=== PATIENT | male | born 1940 | race Caucasian/White ===

== ENCOUNTER 2021-09-11 20:23 | Emergency (ER) | payer MEDICARE, OTHER ==
[~2021-09-11] VITALS: Ht 167.6 cm; Wt 56.7 kg
[2021-09-11] MEDS ORDERED: ONDANSETRON 4 MG/2 ML VIAL IV ONE (20:30)
--- NOTE | 2021-09-11 20:31 | NUR ---
pt bib ra and placed in room 4b.
[2021-09-11] MEDS ORDERED: ONDANSETRON 4 MG/2 ML VIAL ONE (20:36)
[2021-09-11 20:53] LABS: HEMATOCRIT 36.8 % (36.7-47.1); MEAN CORPUSCULAR HEMOGLOBIN 33.4 uug (23.8-33.4); MEAN CORPUSCULAR VOLUME 97.7 fL (73.0-96.2); PLATELET COUNT (AUTO) 92 K/uL (152-348)
[2021-09-11 21:08] LABS: ETHANOL < 3 MG/DL (0-0)
[2021-09-11 21:15] LABS: CARBON DIOXIDE 24 mmol/L (21-32); CHLORIDE 105 mmol/L (98-107); CREATININE 1.4 mg/dL (0.6-1.3); GLUCOSE 228 mg/dL (74-106); POTASSIUM 4.2 mmol/L (3.5-5.1); UREA NITROGEN, BLOOD 17 mg/dL (7-18)
[2021-09-11] MEDS ORDERED: PROP10TA10 PO (21:17)
[2021-09-11] MEDS ORDERED: MV-M1TAB18 PO (21:17)
[2021-09-11] MEDS ORDERED: TAMS-3 PO (21:17)
[2021-09-11] MEDS ORDERED: RIFA550T PO (21:17)
[2021-09-11] MEDS ORDERED: SITA100T PO (21:17)
[2021-09-11] MEDS ORDERED: OXYB5TAB16 PO (21:17)
[2021-09-11] MEDS ORDERED: METF-494 PO (21:17)
[2021-09-11] MEDS ORDERED: FURO40TA5 PO (21:17)
[2021-09-11] MEDS ORDERED: SPIR100T5 PO (21:17)
[2021-09-11] MEDS ORDERED: ACET-2154 PO (21:17)
[2021-09-11] MEDS ORDERED: ATOR20TA PO (21:17)
[2021-09-11] MEDS ORDERED: FERR325T30 PO (21:17)
[2021-09-11] MEDS ORDERED: PANT40TA49 PO (21:17)
[2021-09-11] MEDS ORDERED: LACT10SO3 PO (21:17)
[2021-09-11] MEDS ORDERED: MEMA10TA PO (21:17)
[2021-09-11 21:19] LABS: ALANINE AMINOTRANSFERASE 17 U/L (16-63); ALKALINE PHOSPHATASE 149 U/L (50-136); ASPARTATE AMINOTRANSFERASE 22 U/L (15-37); BILIRUBIN,DIRECT 0.4 mg/dL (0.0-0.2); BILIRUBIN,TOTAL 1.3 mg/dL (0.2-1.0); TOTAL PROTEIN, SERUM 8.5 g/dL (6.4-8.2)
[2021-09-11 21:20] LABS: ACETAMINOPHEN < 2.0 ug/mL (10-30)
[2021-09-11 21:27] LABS: *BILIRUBIN,URIN NEGATIVE (NEGATIVE); *BLOOD, URINE 1+ (NEGATIVE); *CLARITY,URINE CLOUDY (CLEAR); *COLOR,URINE YELLOW (YELLOW); *KETONES,URINE NEGATIVE (NEGATIVE); *UROBILINOGEN,URINE 0.2 E.U./dl (NORMAL); LEUKOCYTE ESTERASE ,URINE 2+ (NEGATIVE); NITRITE, URINE POSITIVE (NEGATIVE); PH,URINE 5.5 (5.0-8.0); UGLUCOSE NEGATIVE (NEGATIVE)
[2021-09-11 21:36] LABS: BACTERIA,URINE MANY /HPF (NONE SEEN); RBC,URINE 20-50 /HPF (0-3); SQUAMOUS EPITHELIAL CELL,UR FEW /HPF (NONE SEEN); WBC,URINE TNTC /HPF (0-3)
[2021-09-11 21:41] LABS: *AMPHETAMINE, URINE NEGATIVE (NEGATIVE); *CANNABINOID, URINE NEGATIVE (NEGATIVE); *COCCAINE, URINE NEGATIVE (NEGATIVE); *OPIATE, URINE NEGATIVE (NEGATIVE); *PHENCYCLIDINE SCREEN,URINE NEGATIVE (NEGATIVE)
--- NOTE | 2021-09-11 21:46 | NUR ---
Dr. Askew in speaking with the pt and famiy.
--- NOTE | 2021-09-11 21:47 | NUR ---
pt went for cat scan of head.
[2021-09-11] MEDS ORDERED: LACTULOSE 20 G/30 ML LIQUID UDC PO ONE (22:00)
[2021-09-11] MEDS ORDERED: LACTULOSE 20 G/30 ML LIQUID UDC ONE (22:00)
--- NOTE | 2021-09-11 22:31 | NUR ---
per Dr. Askew he spoke with Dr. Holley and states the pt has bilateral subdural hematoma.
--- NOTE | 2021-09-11 22:36 | NUR ---
Per Dr. Askew he received a call back from Dr. Holley and the pt will go to [facility].
--- NOTE | 2021-09-11 22:52 | NUR ---
spoke with Gala at the transfer center as the pt will be transferred to [facility]. She requested I fax the face sheet and covid results.
--- NOTE | 2021-09-11 23:23 | NUR ---
contact information is Fei at [phone] and [phone]. son in law and daughter.
--- NOTE | 2021-09-12 00:14 | NUR ---
spoke with Adriana at [facility] at [phone] states the pt will go to room 4411 and number for report is [phone] at [facility].
--- NOTE | 2021-09-12 01:07 | NUR ---
report given to Joan WOOTEN at [facility] to go to room 4411 number that was called was [phone]. I told her I do not have a transport time as of yet but I will call her when I am notified.
[2021-09-12] MEDS ORDERED: CEFTRIAXONE /D5W 50ML IVPB **ER PYXIS IV ONE (01:09)
[2021-09-12] MEDS ORDERED: CEFTRIAXONE 1 G in IV DEXTROSE 5% 50 ML IV ONE (01:15)
--- NOTE | 2021-09-12 01:22 | NUR ---
spoke with Gala at the transfer center she states they are still unaware of when transport will arrive they do not have a time currently.
--- NOTE | 2021-09-12 02:01 | NUR ---
Twila blanca in [facility] - 09/12/21 at 0203 by [facility] pt was transported via w/c to room 329 henrry Leal in room to receive the pt.
--- NOTE | 2021-09-12 03:34 | NUR ---
call to [facility] at [phone]. Was told by Gala that they are still waiting to find out about transfer.
--- NOTE | 2021-09-12 06:15 | NUR ---
Spoke with Hector, rn case management for [facility], with [facility] for [facility] in 1 hour ~ [id number].
--- NOTE | 2021-09-12 07:06 | NUR ---
report was given to Josh WOOTEN with [facility] transport pt to go to [facility] room 4411. I called [facility] at [phone] and spoke with Tiffany the satellite installation technician to inform them that the pt will now be leaving with [facility] transport.
== END 2021-09-12 07:18 | disposition short-term general hospital (02) ==
LOC: ER 20:23
DX: E72.20 Disorder of urea cycle metabolism, unspecified (principal); R41.0 Disorientation, unspecified; I62.01 Nontraumatic acute subdural hemorrhage; N39.0 Urinary tract infection, site not specified; K76.9 Liver disease, unspecified; Z74.01 Bed confinement status; F03.90 Unspecified dementia, unspecified severity, without behavioral disturbance, psychotic disturbance, mood disturbance, and anxiety; Z20.822 Contact with and (suspected) exposure to COVID-19; I50.9 Heart failure, unspecified; E11.9 Type 2 diabetes mellitus without complications; N40.0 Benign prostatic hyperplasia without lower urinary tract symptoms; K21.9 Gastro-esophageal reflux disease without esophagitis; Z79.899 Other long term (current) drug therapy; Z79.84 Long term (current) use of oral hypoglycemic drugs
CPT/HCPCS: 80076; 80048; 81001; 82140; 84443; 85025; 85730; 87426; 87040 ×2; 87086; 84484 ×2; 36415; 93005; 71045; 70450; 99291; 96375; 83605 ×2; 80299; 80320; 80307; 96365; J2405; J0696; A4663; G0480

== ENCOUNTER 2021-10-26 19:35 | Inpatient (IN) | payer MEDICARE, OTHER ==
[~2021-10-26] VITALS: Ht 172.7 cm; Wt 59.4 kg
[~2021-10-26 19:35] MED LIST: ACET-2154 PO; ATOR20TA PO; FERR325T30 PO; FURO40TA5 PO; LACT10SO3 PO; MEMA10TA PO; METF-494 PO; MV-M1TAB18 PO; OXYB5TAB16 PO; PANT40TA49 PO; PROP10TA10 PO; RIFA550T PO; SITA100T PO; SPIR100T5 PO; TAMS-3 PO
[2021-10-26] MEDS ORDERED: PROPOFOL 100 ML ONE (19:59)
[2021-10-26] MEDS ORDERED: PROPOFOL 100 ML IV ONE (20:00)
[2021-10-26] MEDS ORDERED: SUCCINYLCHOLINE CHLORIDE 200 MG/10 ML VIAL IV ONE (20:00)
[2021-10-26] MEDS ORDERED: ETOMIDATE 20 MG/10 ML VIAL IV ONE (20:00)
[2021-10-26] MEDS ORDERED: IV NORMAL SALINE 1000 ML BAG IV ONE ×2 (20:00→21:30)
--- NOTE | 2021-10-26 20:05 | NUR ---
Dr Reddy at bedside, MSE in progress
--- NOTE | 2021-10-26 20:08 | NUR ---
Plan for intubation. RT notified
[2021-10-26 20:17] LABS: HEMATOCRIT 38.1 % (36.7-47.1); MEAN CORPUSCULAR VOLUME 105.8 fL (73.0-96.2); PLATELET COUNT (AUTO) 107 K/uL (152-348)
[2021-10-26 20:28] LABS: CARBON DIOXIDE 21 mmol/L (21-32); CHLORIDE 104 mmol/L (98-107); CREATININE 1.5 mg/dL (0.6-1.3); GLUCOSE 169 mg/dL (74-106); POTASSIUM 4.8 mmol/L (3.5-5.1); UREA NITROGEN, BLOOD 19 mg/dL (7-18)
[2021-10-26 20:30] VITALS: BP 146/73
--- NOTE | 2021-10-26 20:30 | NUR ---
Pt received report from SUGAR Solis,pt is intubated and sedated on propofol. Tube size 7.5 with 24cm lip line.VENT on rate 16, Tv 450, peep 5, FIO2 100%, O2 sat within desired limits. Cardiac rasheed, NSR, SBP within normal limits. NG -T inserted and clamped. . Loya Catheter 16 inserted and is on gravity with adequate output.
[2021-10-26 20:42] LABS: ALANINE AMINOTRANSFERASE 16 U/L (16-63); ALKALINE PHOSPHATASE 119 U/L (50-136); ASPARTATE AMINOTRANSFERASE 29 U/L (15-37); BILIRUBIN,TOTAL 2.9 mg/dL (0.2-1.0); TOTAL PROTEIN, SERUM 8.6 g/dL (6.4-8.2)
--- NOTE | 2021-10-26 20:57 | NUR ---
Dr Goodman at bedside, MSE in progress
[2021-10-26 21:00] VITALS: BP 135/76
--- NOTE | 2021-10-26 21:00 | NUR ---
Patient's family at bedside
[2021-10-26 21:30] VITALS: BP 111/61
[2021-10-26] MEDS ORDERED: hydrALAZINE HCL 20 MG/1 ML VIAL IV PRN (21:30)
[2021-10-26] MEDS ORDERED: ALBUTEROL SULFATE 8 GM HFA.AER.AD IH PRN (21:30)
[2021-10-26] MEDS ORDERED: MORPHINE SULFATE 2 MG/1 ML DISP.SYRIN IV PRN (21:30)
[2021-10-26] MEDS ORDERED: VANCOMYCIN IV 1,000 MG in IV DEXTROSE 5% 250 ML IV ONE (21:30)
[2021-10-26] MEDS: LACTULOSE 20 G/30 ML LIQUID UDC PO SCH (21:30)
[2021-10-26] MEDS ORDERED: PIPERACILLIN SODIUM/TAZOBACTAM 3.375 G in IV DEXTROSE 5% 50 ML IV ONE (21:30)
[2021-10-26] MEDS ORDERED: ONDANSETRON 4 MG/2 ML VIAL IV PRN (21:30)
[2021-10-26] MEDS ORDERED: LACTULOSE 20 G/30 ML LIQUID UDC NG ONE (21:30)
--- NOTE | 2021-10-26 21:30 | NUR ---
Patient has been accepted by Dr Goodman
--- NOTE | 2021-10-26 21:31 | NUR ---
PATIENT ADMITTED ICU IN THE ER
--- NOTE | 2021-10-26 21:32 | NUR ---
Hali WHITING CAN WORKER at bedside
[2021-10-26] MEDS ORDERED: DEXTROSE 50% 50 ML DISP.SYRIN IV PRN (21:45)
[2021-10-26] MEDS ORDERED: FUROSEMIDE 40 MG/4 ML VIAL IV ONE (21:45)
[2021-10-26] MEDS ORDERED: FUROSEMIDE 40 MG/4 ML VIAL IV SCH (21:45)
[2021-10-26] MEDS ORDERED: PIPERACILLIN/TAZOBACTAM/D5W 50 ML IV ONE (21:52)
[2021-10-26] MEDS ORDERED: LACTULOSE 20 G/30 ML LIQUID UDC ONE (21:56)
[2021-10-26 22:00] VITALS: BP 91/52
[2021-10-26] MEDS ORDERED: VANCOMYCIN IV 200 ML ONE (22:59)
[2021-10-26 23:00] VITALS: BP 84/51
[2021-10-26] MEDS ORDERED: SIMETHICONE 80 MG TAB.CHEW ONE (23:02)
[2021-10-26] MEDS ORDERED: ATORVASTATIN 20 MG TABLET ONE (23:02)
--- NOTE | 2021-10-26 23:32 | NUR ---
called outside pharmacy,spoke to Kassy, verified 2 lactulose orders from 2 different DRs. one is now and one is QID.Advised to give the stat one and go to the routine time on the other meds
[2021-10-26] MEDS ORDERED: FUROSEMIDE 40 MG/4 ML VIAL ONE (23:36)
[2021-10-26] MEDS ORDERED: RIFAXIMIN 550 MG TABLET ONE (23:36)
[2021-10-26] MEDS: RIFAXIMIN 550 MG TABLET PO SCH (23:43)
[2021-10-27] VITALS (59 sets, daily range): BP systolic 75–138; BP diastolic 45–77
[2021-10-27] LABS: *BILIRUBIN,URIN NEGATIVE (NEGATIVE); *CLARITY,URINE CLEAR (CLEAR); *COLOR,URINE YELLOW (YELLOW); *KETONES,URINE TRACE (NEGATIVE); *UROBILINOGEN,URINE 0.2 E.U./dl (NORMAL); LEUKOCYTE ESTERASE ,URINE 2+ (NEGATIVE); NITRITE, URINE NEGATIVE (NEGATIVE); PH,URINE 5.5 (5.0-8.0); UGLUCOSE NEGATIVE (NEGATIVE)
[2021-10-27 00:06] LABS: *BLOOD, URINE TRACE (NEGATIVE)
[2021-10-27 00:25] LABS: BACTERIA,URINE MANY /HPF (NONE SEEN); SQUAMOUS EPITHELIAL CELL,UR FEW /HPF (NONE SEEN)
--- NOTE | 2021-10-27 01:20 | NUR ---
Pt with RT, RN and X-RAY tech went for CT scan.
--- NOTE | 2021-10-27 01:50 | NUR ---
Pt back from CT scan.
[2021-10-27] MEDS ORDERED: PROPOFOL 100 ML ONE ×2 (01:57→16:03)
[2021-10-27] MEDS ORDERED: PROPOFOL 100 ML IV ONE (02:15)
[2021-10-27 05:28] LABS: HEMATOCRIT 32.2 % (36.7-47.1); MEAN CORPUSCULAR HEMOGLOBIN 36.5 uug (23.8-33.4); MEAN CORPUSCULAR VOLUME 104.8 fL (73.0-96.2); PLATELET COUNT (AUTO) 91 K/uL (152-348)
[2021-10-27 05:53] LABS: ALANINE AMINOTRANSFERASE 17 U/L (16-63); ALKALINE PHOSPHATASE 92 U/L (50-136); ASPARTATE AMINOTRANSFERASE 22 U/L (15-37); BILIRUBIN,TOTAL 2.7 mg/dL (0.2-1.0); CARBON DIOXIDE 19 mmol/L (21-32); CHLORIDE 107 mmol/L (98-107); CREATININE 1.5 mg/dL (0.6-1.3); GLUCOSE 170 mg/dL (74-106); PHOSPHOROUS 3.7 mg/dL (2.5-4.9); POTASSIUM 3.7 mmol/L (3.5-5.1); TOTAL PROTEIN, SERUM 7.3 g/dL (6.4-8.2); UREA NITROGEN, BLOOD 22 mg/dL (7-18)
[2021-10-27] MEDS: BLOOD SUGAR DIAGNOSTIC 1 EACH STRIP VI SCH ×4 (06:35→20:51)
[2021-10-27] MEDS ORDERED: ALBUTEROL SULFATE 2.5 MG/3 ML NEBU NEB PRN (07:15)
--- NOTE | 2021-10-27 07:29 | NUR ---
Pt received intubated on CMV, 7.5 ETT secured with anchorfast @ 23cm lip line. Fio2 titrated to 90%. RN notified. Spo2 and respirations wnl. ETT repositioned. ETT/oral sxn.
--- NOTE | 2021-10-27 08:55 | NUR ---
doctor donell informed as new consult
[2021-10-27] MEDS ORDERED: FUROSEMIDE 20 MG TABLET PO SCH (09:00)
[2021-10-27] MEDS ORDERED: IV NS 1000 ML 1,000 ML IV ONE ×2 (09:00→09:45)
[2021-10-27] MEDS ORDERED: SPIRONOLACTONE 50 MG TABLET PO SCH (09:00)
[2021-10-27] MEDS ORDERED: MEMANTINE HCL 10 MG TABLET PO SCH (09:00)
[2021-10-27] MEDS ORDERED: PANTOPRAZOLE SODIUM 40 MG TABLET.DR PO SCH (09:00)
[2021-10-27] MEDS ORDERED: SPIRONOLACTONE 100 MG TABLET PO SCH (09:00)
[2021-10-27] MEDS: FLUTICASONE/VILANTEROL 1 EACH BLST.W.DEV INH SCH (09:00)
[2021-10-27] MEDS: PROPRANOLOL HCL 10 MG TABLET PO SCH ×2 (09:00→16:17)
[2021-10-27] MEDS ORDERED: PIPERACILLIN SODIUM/TAZOBACTAM 3.375 G in IV DEXTROSE 5% 50 ML IV SCH (09:00)
[2021-10-27] MEDS ORDERED: ATORVASTATIN 20 MG TABLET PO SCH (09:00)
[2021-10-27] MEDS: PIPERACILLIN SODIUM/TAZOBACTAM 3.375 G in IV DEXTROSE 5% 100 ML IV SCH ×3 (09:29→23:24)
[2021-10-27] MEDS ORDERED: RIFAXIMIN 550 MG TABLET ONE ×2 (09:34→20:27)
[2021-10-27] MEDS ORDERED: LACTULOSE 20 G/30 ML LIQUID UDC ONE ×4 (09:34→20:27)
[2021-10-27] MEDS: LACTULOSE 20 G/30 ML LIQUID UDC PO SCH ×4 (09:35→20:30)
[2021-10-27] MEDS ORDERED: HEPARIN SODIUM,PORCINE 5,000 UNITS/ML VIAL ONE (09:35)
[2021-10-27] MEDS ORDERED: TAMSULOSIN HCL 0.4 MG CAP.SR.24H ONE (09:35)
[2021-10-27] MEDS: RIFAXIMIN 550 MG TABLET PO SCH ×2 (09:37→20:30)
[2021-10-27] MEDS: TAMSULOSIN HCL 0.4 MG CAP.SR.24H PO SCH (09:37)
[2021-10-27] MEDS: HEPARIN SODIUM,PORCINE 5,000 UNITS/ML VIAL SQ SCH ×2 (09:40→20:12)
[2021-10-27] MEDS ORDERED: ATORVASTATIN 20 MG TABLET ONE ×2 (10:00→20:28)
[2021-10-27] MEDS ORDERED: PANTOPRAZOLE ORAL SUSPENSION 40 MG SUSPDR.PKT NG SCH (10:30)
--- NOTE | 2021-10-27 10:59 | NUR ---
US guided thoracentesis will be done tomorrow. hold blood thinners for prior to procedure
[2021-10-27] MEDS: INSULIN REGULAR, HUMAN 300 UNIT/3 ML VIAL SQ PRN ×3 (12:13→21:02)
[2021-10-27] MEDS ORDERED: ALBUMIN HUMAN 25% 250 ML IV ONE (12:30)
[2021-10-27] MEDS ORDERED: ALBUMIN HUMAN 25% 50 ML ONE (12:33)
[2021-10-27] MEDS ORDERED: ALBUMIN HUMAN 25% 200 ML ONE (12:34)
[2021-10-27] MEDS ORDERED: LEVE500T20 PO (13:07)
[2021-10-27] MEDS ORDERED: OXYB-58 PO (13:07)
[2021-10-27] MEDS ORDERED: PANTOPRAZOLE ORAL SUSPENSION 40 MG SUSPDR.PKT PO SCH (13:11)
[2021-10-27] MEDS ORDERED: NOREPINEPHRINE BITARTRATE 8 MG in IV NORMAL SALINE 242 ML IV PRN (14:15)
[2021-10-27] MEDS: PROPOFOL 100 ML IV PRN (16:13)
--- NOTE | 2021-10-27 16:46 | NUR ---
Pt is stable on vent, Fio2 titrated to 40% during shift. Spo2 and respirations wnl. ETT repositioned Q2, ett/oral sxn prn. No resp. distress noted throughout shift. Will continue to monitor and follow current respiratory treatments as ordered.
[2021-10-27 18:16] LABS: ABG PCO2 22.9 mmHg (35.0-45.0); ABG PH 7.462 (7.350-7.450); ABG PO2 108.3 mmHg (75.0-100.0); ABG SITE LEFT RADIAL; ABG TOTAL HEMOGLOBIN 12.2 G/dL (13.5-18.0); MetHb 0.2 % (0.0-1.5); O2Hb 97.8 % (94.0-97.0); VENT MODE VENT - A/C; VT, ABG 450 mL
[2021-10-27 18:28] LABS: ABG BASE EXCESS -5.2 mmol/L; ABG HCO3 16.4 mmol/L; ABG PCO2 21.8 mmHg (35.0-45.0); ABG PH 7.495 (7.350-7.450); ABG PO2 170.1 mmHg (75.0-100.0); ABG SITE LEFT RADIAL; ABG TOTAL HEMOGLOBIN 11.2 G/dL (13.5-18.0); COHb 0.3 % (0.5-1.5); MetHb 0.2 % (0.0-1.5); O2Hb 98.5 % (94.0-97.0); VENT MODE VENT - A/C; VT, ABG 45 mL
--- NOTE | 2021-10-27 19:30 | NUR ---
Received pt sedated and intubated, on VENT rate 16, Tv 450, FIO2 40%, peep 5. O2 sat within desired limits. Cardiac rasheed, NSR, SBP within desired limits. Loya catheter is on gravity.NGT clamped . 3 lumen Central line on right internal jugular,intact and patent. Will continue to monitor.
[2021-10-27] MEDS ORDERED: OXYBUTYNIN XL 5 MG TABSR PO ONE (20:27)
[2021-10-27] MEDS: ATORVASTATIN 20 MG TABLET PO SCH (20:30)
[2021-10-27] MEDS: OXYBUTYNIN XL 5 MG TABSR PO SCH (20:30)
[2021-10-27] MEDS: MEMANTINE HCL 10 MG TABLET PO SCH (20:30)
[2021-10-27] MEDS ORDERED: INSULIN REGULAR, HUMAN 300 UNIT/3 ML VIAL ONE (20:55)
[2021-10-27] MEDS ORDERED: OXYBUTYNIN CHLORIDE 5 MG TABLET PO SCH (21:00)
[2021-10-28] VITALS (57 sets, daily range): BP systolic 86–144; BP diastolic 49–71
--- NOTE | 2021-10-28 01:55 | NUR ---
Pt has no change from previous assessment.Had 2 moderate loose stools. V/S within desired limits. Lactic Acid labs have been drawn Q4h, Levels continue to decrease .Continuing to monitor.
--- NOTE | 2021-10-28 02:54 | NUR ---
PATIENT ON CONT GAMEZ VENT WITH 7.5 ET/TUBE IN PLACE AND SECURED WITH ANCHOR FAST, MOVE POSITION Q2 HOURS, PT DOES ASSIST AT TIMES, PT IS SEDATED ON DIPRIVAN, SUCTION SOME BLOODY TINGE SECRETIONS, IN ORAL CAVITY WITH GEGE, CHANGE HME, ALL VENT ALARMS GOOD, CURRENT VENT SETTINGS, A/C 16, 450ML, PEEP5 , FIO2 @ 40%, NO VENT CHANGES MADE, VENT PLUGGED INTO RED WALL OUTLET .Cristela LEOP Addendum: 10/28/21 at 0256 by CONY GARZON RT Amended: Links added.
[2021-10-28 04:51] LABS: HEMATOCRIT 30.8 % (36.7-47.1); MEAN CORPUSCULAR HEMOGLOBIN 36.1 uug (23.8-33.4); PLATELET COUNT (AUTO) 82 K/uL (152-348)
[2021-10-28 05:01] LABS: CARBON DIOXIDE 19 mmol/L (21-32); CHLORIDE 107 mmol/L (98-107); CREATININE 1.5 mg/dL (0.6-1.3); GLUCOSE 161 mg/dL (74-106); MAGNESIUM 1.3 mg/dL (1.8-2.4); POTASSIUM 3.4 mmol/L (3.5-5.1); UREA NITROGEN, BLOOD 26 mg/dL (7-18)
[2021-10-28] MEDS: PANTOPRAZOLE ORAL SUSPENSION 40 MG SUSPDR.PKT PO SCH (06:33)
[2021-10-28] MEDS ORDERED: PROPOFOL 100 ML ONE ×2 (06:39→20:09)
[2021-10-28] MEDS: PROPOFOL 100 ML IV PRN ×2 (06:41→20:10)
--- NOTE | 2021-10-28 07:07 | NUR ---
Endorsed pt to next shift nurse, intubated and sedated. NSR and SBP within desired limits.Continue to monitor.
--- NOTE | 2021-10-28 07:30 | NUR ---
plan for weaning tomorrow am per Dr Jameson.
[2021-10-28] MEDS: BLOOD SUGAR DIAGNOSTIC 1 EACH STRIP VI SCH ×4 (07:34→21:05)
[2021-10-28] MEDS: INSULIN REGULAR, HUMAN 300 UNIT/3 ML VIAL SQ PRN ×3 (07:36→22:05)
[2021-10-28] MEDS: FLUTICASONE/VILANTEROL 1 EACH BLST.W.DEV INH SCH (07:37)
[2021-10-28] MEDS: PROPRANOLOL HCL 10 MG TABLET PO SCH ×2 (07:38→17:00)
[2021-10-28] MEDS: PIPERACILLIN SODIUM/TAZOBACTAM 3.375 G in IV DEXTROSE 5% 100 ML IV SCH ×2 (07:40→17:39)
[2021-10-28] MEDS: HEPARIN SODIUM,PORCINE 5,000 UNITS/ML VIAL SQ SCH (07:59)
[2021-10-28] MEDS ORDERED: LACTULOSE 20 G/30 ML LIQUID UDC ONE ×4 (08:03→21:11)
[2021-10-28] MEDS ORDERED: TAMSULOSIN HCL 0.4 MG CAP.SR.24H ONE (08:03)
[2021-10-28] MEDS ORDERED: FUROSEMIDE 40 MG TABLET ONE (08:03)
[2021-10-28] MEDS ORDERED: RIFAXIMIN 550 MG TABLET ONE ×2 (08:03→21:12)
[2021-10-28] MEDS: TAMSULOSIN HCL 0.4 MG CAP.SR.24H PO SCH (08:05)
[2021-10-28] MEDS: RIFAXIMIN 550 MG TABLET PO SCH ×2 (08:05→21:13)
[2021-10-28] MEDS: LACTULOSE 20 G/30 ML LIQUID UDC PO SCH ×4 (08:05→21:13)
[2021-10-28] MEDS ORDERED: MAGNESIUM SULFATE/D5W 200 ML ONE (08:49)
[2021-10-28] MEDS ORDERED: POTASSIUM CHLORIDE 100 ML ONE (08:49)
[2021-10-28] MEDS: MAGNESIUM SULFATE/D5W 100 ML IV SCH ×2 (08:50→10:15)
[2021-10-28] MEDS: POTASSIUM CHLORIDE 50 ML IV SCH ×2 (08:50→10:15)
[2021-10-28] MEDS ORDERED: FUROSEMIDE 40 MG TABLET PO SCH (09:00)
--- NOTE | 2021-10-28 10:40 | NUR ---
WOUND CARE CONSULT: PT PRESENTS WITH SACRAL INTACT DEEP TISSUE INJURY AND RASH TO BUTTOCKS, PRESENT ON ADMISSION. RECOMMENDATIONS MADE FOR SKIN PROTECTION AND WOUND CARE. DISCUSSED WITH NURSING STAFF. FIRST STEP LOW AIRLOSS MATTRESS IS ON ORDER. PT IS INCONTINENT OF LOOSE STOOL. PRAFUL SAAVEDRA NOTED. PT IS CURRENTLY INTUBATED. IN AGREEMENT WITH PLAN OF CARE. Addendum: 10/28/21 at 1041 by XIMENA GLASER RN Amended: Links added.
[2021-10-28] MEDS ORDERED: REMEDY ESSENTIAL ZINC PASTE 113 GM TOP PRN (10:45)
[2021-10-28] MEDS ORDERED: IV NS 1000 ML 1,000 ML IV ONE (11:15)
[2021-10-28 11:39] LABS: ABG BASE EXCESS -5.8 mmol/L; ABG PH 7.479 (7.350-7.450); ABG PO2 78.7 mmHg (75.0-100.0); ABG SITE LEFT RADIAL; ABG TOTAL HEMOGLOBIN 11.3 G/dL (13.5-18.0); COHb 0.3 % (0.5-1.5); MetHb 0.3 % (0.0-1.5); O2Hb 94.8 % (94.0-97.0); VENT MODE VENT - A/C; VT, ABG 450 mL
--- NOTE | 2021-10-28 12:00 | NUR ---
patient completed right thoracentesis at bedside with 1.1L out. An uneventful procedure.
[2021-10-28] MEDS ORDERED: PROPRANOLOL HCL 10 MG TABLET ONE (17:33)
[2021-10-28] MEDS: CLOTRIMAZOLE 1% CREAM 30 GM TUBE TOP SCH (17:39)
[2021-10-28] MEDS ORDERED: ATORVASTATIN 20 MG TABLET ONE (21:12)
[2021-10-28] MEDS ORDERED: OXYBUTYNIN XL 5 MG TABSR PO ONE (21:12)
[2021-10-28] MEDS: OXYBUTYNIN XL 5 MG TABSR PO SCH (21:13)
[2021-10-28] MEDS: ATORVASTATIN 20 MG TABLET PO SCH (21:13)
[2021-10-28] MEDS: REMEDY ESSENTIAL ZINC PASTE 113 GM TOP SCH (21:14)
[2021-10-28] MEDS: MEMANTINE HCL 10 MG TABLET PO SCH (21:14)
--- NOTE | 2021-10-28 21:47 | NUR ---
Assumed care of pt from SUGAR Almaguer, per report pts day was uneventful short of a visit from industrial property appraiser and a thoracentisis that was performed. pt found lying in bed, in high fowlers position, intubated and mechanically ventilated. Vent settings noted else where in chart. pt id being monitored via three lead site monitor, automatic intermittent blood pressures and continuos pulse oximetry, pt has a sinus rhythm. Blood pressure, both systolic and MAP are within desired range and pts oxygenation is adequate pt has a anna catheter that was assessed, cleaned and ensured it is properly anchored and collection bag is off the floor and below the bladder, pt is producing urine. pts skin is intact minus a sacral wound that was staged and treated earlier today by wound care. IV ABX infusing per MD order. pt is within the line of sight of RN. VSS and LINDY RN will CTM
[2021-10-29] VITALS (31 sets, daily range): BP systolic 100–160; BP diastolic 52–79
--- NOTE | 2021-10-29 01:18 | NUR ---
no change from previous assessment, pt turned from left lateral to "floating" to right lateral Q2H, pt tolerated well, no stool noted. skin remain warm and blanchable, no new skin issues noted other than previously documented sacral wound. VSS and LINDY, RN will CTM
[2021-10-29 05:11] LABS: HEMATOCRIT 29.7 % (36.7-47.1); MEAN CORPUSCULAR HEMOGLOBIN 35.8 uug (23.8-33.4); MEAN CORPUSCULAR VOLUME 101.8 fL (73.0-96.2); PLATELET COUNT (AUTO) 70 K/uL (152-348)
[2021-10-29 05:22] LABS: CREATININE 1.2 mg/dL (0.6-1.3); MAGNESIUM 1.8 mg/dL (1.8-2.4); POTASSIUM 3.3 mmol/L (3.5-5.1)
--- NOTE | 2021-10-29 06:44 | NUR ---
UNABLE TO PLACED PATIENT ON CPAP MODE D/T PATIENT STILL ON SEDATION. NURSE AWARE
[2021-10-29 06:47] LABS: EOSINOPHILS % (MANUAL) 5 % (0-8); LYMPHOCYTES % (MANUAL) 9 % (20-40); MONOCYTES % (MANUAL) 6 % (2-10); NEUTROPHILS % (MANUAL) 80 % (42-75)
[2021-10-29] MEDS: PANTOPRAZOLE ORAL SUSPENSION 40 MG SUSPDR.PKT PO SCH (07:00)
--- NOTE | 2021-10-29 07:19 | NUR ---
no significant changes in pts condition from previous assessment. pt turned q2h and tolerated wello, no excessive secrations and anna in draining wnl. RT and internaist at bedside to extubate pt and place them on biPaP. report given and care endorsed to yard truck driver, all questions answered, no acute distress noted
[2021-10-29] MEDS: BLOOD SUGAR DIAGNOSTIC 1 EACH STRIP VI SCH ×4 (07:30→21:00)
[2021-10-29] MEDS: POTASSIUM CHLORIDE 50 ML IV SCH ×3 (07:45→10:11)
[2021-10-29] MEDS ORDERED: POTASSIUM CHLORIDE 20 MEQ POWDER PACKET PO ONE (07:45)
--- NOTE | 2021-10-29 07:45 | NUR ---
DECREASED PROPOFOL DRIP TO 5 MCG/KG/MIN CONTENUE MONITERING PT STILL ASLEPPY UNSPONSIVE
--- NOTE | 2021-10-29 08:00 | NUR ---
OFF PROPOFOL DRIP ABG DONE PH 7.52 PCO2 23.5 PO2 71 HCO3 19.2 O2 SATY 94 % HOB 30 @ ALL TIME
[2021-10-29 08:01] LABS: ABG BASE EXCESS -2.2 mmol/L; ABG HCO3 19.2 mmol/L; ABG PCO2 23.5 mmHg (35.0-45.0); ABG PH 7.529 (7.350-7.450); ABG PO2 71.1 mmHg (75.0-100.0); ABG SITE RIGHT RADIAL; ABG TOTAL HEMOGLOBIN 11.2 G/dL (13.5-18.0); COHb 0.3 % (0.5-1.5); MetHb 0.2 % (0.0-1.5); O2Hb 94.6 % (94.0-97.0); VENT MODE VENT - CPAP - PS 8
--- NOTE | 2021-10-29 08:11 | NUR ---
RECEIVED PT FROM Shant CRAFT RN PT INTUBATED ORALAdan MOSHER MD AT [facility] RT FOR WINING [address] LEAL SITTING C -PAP WITH FIO2 35% DECREASSED PROPOFOL DRIP TO 10MCG/KG/MIN
[2021-10-29 08:17] LABS: BILIRUBIN,DIRECT 1.2 mg/dL (0.0-0.2); BILIRUBIN,TOTAL 2.5 mg/dL (0.2-1.0)
[2021-10-29] MEDS: PIPERACILLIN SODIUM/TAZOBACTAM 3.375 G in IV DEXTROSE 5% 100 ML IV SCH ×2 (08:33→16:12)
[2021-10-29] MEDS ORDERED: FUROSEMIDE 40 MG/4 ML VIAL IV ONE (08:45)
[2021-10-29] MEDS ORDERED: POTASSIUM CHLORIDE 100 ML ONE (08:50)
[2021-10-29] MEDS ORDERED: POTASSIUM CHLORIDE 20 MEQ POWDER PACKET ONE (08:50)
[2021-10-29] MEDS: REMEDY ESSENTIAL ZINC PASTE 113 GM TOP SCH ×2 (09:00→21:44)
[2021-10-29] MEDS: FLUTICASONE/VILANTEROL 1 EACH BLST.W.DEV INH SCH (09:00)
--- NOTE | 2021-10-29 09:00 | NUR ---
excoriation buttock and preniale area skin care done and rx given as order
[2021-10-29] MEDS: SPIRONOLACTONE 50 MG TABLET PO SCH (09:26)
[2021-10-29] MEDS: PROPRANOLOL HCL 10 MG TABLET PO SCH ×2 (09:29→17:26)
[2021-10-29] MEDS: CLOTRIMAZOLE 1% CREAM 30 GM TUBE TOP SCH ×2 (09:36→17:26)
[2021-10-29] MEDS ORDERED: LACTULOSE 20 G/30 ML LIQUID UDC ONE ×4 (09:39→21:34)
[2021-10-29] MEDS ORDERED: FUROSEMIDE 40 MG/4 ML VIAL ONE (09:39)
[2021-10-29] MEDS ORDERED: TAMSULOSIN HCL 0.4 MG CAP.SR.24H ONE (09:39)
[2021-10-29] MEDS ORDERED: RIFAXIMIN 550 MG TABLET ONE ×2 (09:39→21:35)
[2021-10-29] MEDS: TAMSULOSIN HCL 0.4 MG CAP.SR.24H PO SCH (09:41)
[2021-10-29] MEDS: LACTULOSE 20 G/30 ML LIQUID UDC PO SCH ×4 (09:41→21:43)
[2021-10-29] MEDS: RIFAXIMIN 550 MG TABLET PO SCH ×2 (09:42→21:43)
[2021-10-29] MEDS ORDERED: ALBUMIN HUMAN 25% 100 ML IV SCH (10:00)
[2021-10-29] MEDS ORDERED: DC PROPOFOL ONCE EXTUBATED XX PRN (10:00)
--- NOTE | 2021-10-29 10:00 | NUR ---
stah=ge 2 on sacrale boat builder with optifoam gentle 4x4 protector pad
--- NOTE | 2021-10-29 11:14 | NUR ---
CONDITION STABLE ASLEEPY EYES CLOSED VS STABLE OFF LEVOPHED DRIP
--- NOTE | 2021-10-29 11:39 | NUR ---
pt stll asleep responded to painful slimly unable to extubated pt
[2021-10-29] MEDS: INSULIN REGULAR, HUMAN 300 UNIT/3 ML VIAL SQ PRN ×3 (12:05→22:22)
--- NOTE | 2021-10-29 13:39 | NUR ---
REPOSITION DONE KEEP PT COMFORTABLE
--- NOTE | 2021-10-29 14:10 | NUR ---
Pt not awake, not able to follow commands, minimal retraction with stimuli.. RN aware
--- NOTE | 2021-10-29 16:00 | NUR ---
called DR. KNIGHT FOR NOTEFY UNABLE TO EXTUBATE PT DUE TO PT NOT FULLY AWAKE O2 SAT 97-98% ON C- PAP WITH FIO2 35%
[2021-10-29] MEDS ORDERED: ALBUMIN HUMAN 25% 50 ML ONE ×2 (16:39→16:40)
[2021-10-29] MEDS: ALBUMIN HUMAN 25% 100 ML IV SCH ×2 (16:50→22:39)
[2021-10-29] MEDS ORDERED: SODIUM PHOSPHATE MM 15 MMOL in IV NORMAL SALINE 250 ML IV ONE (17:00)
--- NOTE | 2021-10-29 17:00 | NUR ---
DR. KNIGHT CALL BACK CONTINUE Paulette- ENE PLASENCIA PT WHEN AWAKE UNTIL TOMMORRY MORRNING AGG IN AM
[2021-10-29] MEDS ORDERED: PROPRANOLOL HCL 10 MG TABLET ONE (17:25)
--- NOTE | 2021-10-29 18:33 | NUR ---
pt condition stable continue the same sitting c- pap fio 35% 35% ALL TIME O2 SAT 985 rr 16-18/min
--- NOTE | 2021-10-29 19:44 | NUR ---
CALLED DAUGHTER UGO JONES NOTEFFY AWARE PT PLAN CARE TRANSFER TO [facility]
--- NOTE | 2021-10-29 20:01 | NUR ---
HAND OFF ZAHIRA RN NURSING ADMINISTRATIVE ACCOUNTANT
[2021-10-29] MEDS ORDERED: OXYBUTYNIN XL 5 MG TABSR PO ONE (21:34)
[2021-10-29] MEDS ORDERED: ATORVASTATIN 20 MG TABLET ONE (21:35)
[2021-10-29] MEDS ORDERED: ALBUMIN HUMAN 25% 100 ML ONE (21:37)
[2021-10-29] MEDS: ATORVASTATIN 20 MG TABLET PO SCH (21:43)
[2021-10-29] MEDS: MEMANTINE HCL 10 MG TABLET PO SCH (21:43)
[2021-10-29] MEDS: OXYBUTYNIN XL 5 MG TABSR PO SCH (21:43)
[2021-10-30] VITALS (23 sets, daily range): BP systolic 102–131; BP diastolic 32–84
[2021-10-30] MEDS: PIPERACILLIN SODIUM/TAZOBACTAM 3.375 G in IV DEXTROSE 5% 100 ML IV SCH ×2 (00:21→08:18)
--- NOTE | 2021-10-30 04:57 | NUR ---
more awake this morning, eyes open spontaneously, especially when stimulated but he does not follow commsnds.
--- NOTE | 2021-10-30 05:15 | NUR ---
Moves r upper extremity, kept bringing it up near mouth . Grabs but doesn't pull. soft wrist restraints to keep R hand from grabbing ETT.
[2021-10-30 05:23] LABS: HEMATOCRIT 27.9 % (36.7-47.1); MEAN CORPUSCULAR HEMOGLOBIN 36.2 uug (23.8-33.4); MEAN CORPUSCULAR VOLUME 101.9 fL (73.0-96.2); PLATELET COUNT (AUTO) 71 K/uL (152-348)
[2021-10-30 05:35] LABS: CREATININE 1.1 mg/dL (0.6-1.3); MAGNESIUM 1.4 mg/dL (1.8-2.4); PHOSPHOROUS 1.9 mg/dL (2.5-4.9); POTASSIUM 3.3 mmol/L (3.5-5.1)
--- NOTE | 2021-10-30 05:40 | NUR ---
Patient is unable to follow commands, minimal reactions to stimuli. RN is aware. ABG done.
[2021-10-30 05:59] LABS: ABG BASE EXCESS -3.8 mmol/L; ABG HCO3 17.9 mmol/L; ABG PCO2 23.1 mmHg (35.0-45.0); ABG PH 7.507 (7.350-7.450); ABG PO2 79.6 mmHg (75.0-100.0); ABG SITE RIGHT RADIAL; ABG TOTAL HEMOGLOBIN 10.8 G/dL (13.5-18.0); COHb 0.3 % (0.5-1.5); CPAP,BG 8 cmH20; MetHb 0.4 % (0.0-1.5); O2Hb 95.3 % (94.0-97.0)
[2021-10-30] MEDS: PANTOPRAZOLE ORAL SUSPENSION 40 MG SUSPDR.PKT PO SCH (06:30)
--- NOTE | 2021-10-30 07:00 | NUR ---
Received patient on CPAP PS 8, FI02 35%. Orally intubated 7.5 ETT, 23 LL. No distress noted. Unable to follow commands. Arousable to touch. Central line intact, infusing well. Peripheral IV to RAC, and LFA, patent. Will continue to monitor.
[2021-10-30] MEDS: BLOOD SUGAR DIAGNOSTIC 1 EACH STRIP VI SCH ×4 (07:35→20:34)
--- NOTE | 2021-10-30 07:59 | NUR ---
PT RECEIVED ORALLY INTUBATED WITH 7.5 ETT, APPROX. 23 CM AT THE LIP. PT IT TOLERATING CPAP PS 8, FIO2 35% WELL. NO RESPIRATORY DISTRESS NOTED. PT IS UNABLE TO FOLLOW COMMANDS AT THIS TIME. SLIGHT GRIMACE UPON TOUCH. EYES MINIMALLY OPEN. SUCTION SMALL AMOUNT OF BROWN TINGE SECRETIONS. AMBU BAG AT BEDSIDE. VENT PLUGGED INTO RED EMERGENCY OUTLET. WILL CONTINUE TO MONITOR.
[2021-10-30] MEDS ORDERED: POTASSIUM PHOSPHATE MM 15 MMOL in IV NORMAL SALINE 250 ML IV ONE (08:00)
[2021-10-30] MEDS ORDERED: RIFAXIMIN 550 MG TABLET ONE ×2 (08:04→19:50)
[2021-10-30] MEDS ORDERED: MAGNESIUM SULFATE/D5W 400 ML ONE (08:04)
[2021-10-30] MEDS ORDERED: LACTULOSE 20 G/30 ML LIQUID UDC ONE ×4 (08:04→19:50)
[2021-10-30] MEDS ORDERED: PROPRANOLOL HCL 10 MG TABLET ONE ×2 (08:05→16:23)
[2021-10-30] MEDS: LACTULOSE 20 G/30 ML LIQUID UDC PO SCH ×4 (08:12→20:27)
[2021-10-30] MEDS: MAGNESIUM SULFATE/D5W 100 ML IV SCH ×4 (08:12→11:33)
[2021-10-30] MEDS: PROPRANOLOL HCL 10 MG TABLET PO SCH ×2 (08:13→16:28)
[2021-10-30] MEDS: RIFAXIMIN 550 MG TABLET PO SCH ×2 (08:13→20:29)
[2021-10-30] MEDS: SPIRONOLACTONE 50 MG TABLET PO SCH (08:13)
[2021-10-30] MEDS: CLOTRIMAZOLE 1% CREAM 30 GM TUBE TOP SCH ×2 (08:14→16:29)
[2021-10-30] MEDS: REMEDY ESSENTIAL ZINC PASTE 113 GM TOP SCH ×2 (08:14→20:29)
[2021-10-30] MEDS ORDERED: FUROSEMIDE 40 MG TABLET ONE (08:16)
[2021-10-30] MEDS: FUROSEMIDE 40 MG TABLET PO SCH (08:16)
[2021-10-30] MEDS: FLUTICASONE/VILANTEROL 1 EACH BLST.W.DEV INH SCH (08:19)
[2021-10-30] MEDS ORDERED: DC PROPOFOL ONCE EXTUBATED XX PRN (09:00)
[2021-10-30] MEDS: INSULIN REGULAR, HUMAN 300 UNIT/3 ML VIAL SQ PRN ×4 (09:01→20:33)
--- NOTE | 2021-10-30 09:58 | NUR ---
PT EXTUBATED AT THIS TIME PER MD ORDER. NO S/S OF RESPIRATORY DISTRESS NOTED. PLACED ON 3LPM VIA NASAL CANNULA. MD ORDER TO KEEP SPO2 >92%. PT MORE RESPONSIVE AT THIS TIME - ATTEMPTING TO GRAB MY ARMS DURING EXTUBATION. EYES MINIMALLY OPEN DURING PROCEDURE. WILL CONTINUE TO MONITOR.
[2021-10-30] MEDS ORDERED: MEROPENEM 500MG/NS 50ML PB ***ER PYXIS ONLY IV ONE (10:09)
[2021-10-30] MEDS ORDERED: POTASSIUM CHLORIDE 50 ML ONE (10:10)
[2021-10-30] MEDS ORDERED: MEROPENEM 1GM/NS 100ML IVPB **ER PYXIS ONLY IV ONE ×2 (10:13→16:23)
[2021-10-30] MEDS: MEROPENEM 1 G in IV NORMAL SALINE 100 ML IV SCH ×2 (10:14→17:03)
[2021-10-30] MEDS: POTASSIUM CHLORIDE 50 ML IV SCH ×2 (10:18→11:39)
[2021-10-30 10:27] LABS: EOSINOPHILS % (MANUAL) 2 % (0-8); LYMPHOCYTES % (MANUAL) 7 % (20-40); MONOCYTES % (MANUAL) 8 % (2-10); NEUTROPHILS % (MANUAL) 83 % (42-75)
--- NOTE | 2021-10-30 10:46 | NUR ---
RT extubated patient at 1000H per MD order. No respiratory distress identified. Tolerated the procedure well. On 3L via NC, saturating at 94%. BP 103/54mmHg, RR 20, HR 67.
[2021-10-30] MEDS ORDERED: IV NORMAL SALINE 500 ML IV ONE (11:45)
--- NOTE | 2021-10-30 12:41 | NUR ---
Suctioned PRN, noted with thin, moderate secretions.
--- NOTE | 2021-10-30 18:29 | NUR ---
Noted with 2x watery BM during the shift. Bed bath provided, tolerated well. suctioned as needed, Turned and repostioned q2 for perfusion. Patient tolerated care. Responding to voice/touch, opens eyes. Still noted with general weakness. will endorse.
[2021-10-30] MEDS ORDERED: OXYBUTYNIN XL 5 MG TABSR PO ONE (19:50)
[2021-10-30] MEDS ORDERED: TAMSULOSIN HCL 0.4 MG CAP.SR.24H ONE (19:51)
[2021-10-30] MEDS ORDERED: ATORVASTATIN 20 MG TABLET ONE (19:51)
[2021-10-30] MEDS: OXYBUTYNIN XL 5 MG TABSR PO SCH (20:27)
[2021-10-30] MEDS: ATORVASTATIN 20 MG TABLET PO SCH (20:29)
[2021-10-30] MEDS: TAMSULOSIN HCL 0.4 MG CAP.SR.24H PO SCH (20:29)
[2021-10-30] MEDS: MEMANTINE HCL 10 MG TABLET PO SCH (20:29)
[2021-10-30] MEDS ORDERED: ALBUTEROL SULFATE 2.5 MG/3 ML NEBU ONE (21:16)
--- NOTE | 2021-10-30 21:20 | NUR ---
Noted with minimal-moderate blood upon suctioning around the mouth and throat. RT at bedside. Wheezing noted, breathing treatment provided by RT as ordered. Will continue to monitor.
[2021-10-31] VITALS (10 sets, daily range): BP systolic 91–142; BP diastolic 49–71
[2021-10-31] MEDS: MEROPENEM 1 G in IV NORMAL SALINE 100 ML IV SCH ×3 (01:35→18:33)
[2021-10-31 06:16] LABS: ABG BASE EXCESS -3.4 mmol/L; ABG HCO3 18.8 mmol/L; ABG PCO2 25.8 mmHg (35.0-45.0); ABG PH 7.481 (7.350-7.450); ABG PO2 66.2 mmHg (75.0-100.0); ABG SITE LEFT RADIAL; COHb 0.2 % (0.5-1.5); MetHb 0.2 % (0.0-1.5); VENT MODE Nasal Cannula
[2021-10-31 06:25] LABS: HEMATOCRIT 29.2 % (36.7-47.1); MEAN CORPUSCULAR HEMOGLOBIN 35.6 uug (23.8-33.4); MEAN CORPUSCULAR VOLUME 102.7 fL (73.0-96.2); PLATELET COUNT (AUTO) 66 K/uL (152-348)
[2021-10-31] MEDS: PANTOPRAZOLE ORAL SUSPENSION 40 MG SUSPDR.PKT PO SCH (06:31)
[2021-10-31] MEDS: BLOOD SUGAR DIAGNOSTIC 1 EACH STRIP VI SCH ×4 (06:36→21:28)
[2021-10-31 06:41] LABS: CARBON DIOXIDE 21 mmol/L (21-32); CHLORIDE 109 mmol/L (98-107); CREATININE 0.9 mg/dL (0.6-1.3); GLUCOSE 133 mg/dL (74-106); MAGNESIUM 1.9 mg/dL (1.8-2.4); POTASSIUM 3.6 mmol/L (3.5-5.1); UREA NITROGEN, BLOOD 14 mg/dL (7-18)
--- NOTE | 2021-10-31 06:46 | NUR ---
patient remained stable during the night. No distress identified. note with 4xBM durnig the shift. Per Dr Reyez AREA ATTENDANT, patient will remain ICU status for 24hrs s/p extubation. Turned and repositioned for perfusion. on 3L via NC, saturation maintaining above 92%. will endorse.
--- NOTE | 2021-10-31 07:00 | NUR ---
Received pt. AAOX1. On NC 3Liters saturation above 95%. no respiratory distress. On cardiac monitoring and on sinus rhythm sbp within normal. anna to gravity, NG noted to clamped. Will continue to monitor.
--- NOTE | 2021-10-31 07:30 | NUR ---
Orders received to down-grade pt. to RAMONA status.
--- NOTE | 2021-10-31 07:36 | NUR ---
ST was ordered yesterday for swallow evaluation today by Dr. Ag. Will endorse to follow up with the ST.
[2021-10-31] MEDS: SPIRONOLACTONE 50 MG TABLET PO SCH (08:51)
[2021-10-31] MEDS: FLUTICASONE/VILANTEROL 1 EACH BLST.W.DEV INH SCH (08:51)
[2021-10-31] MEDS: LACTULOSE 20 G/30 ML LIQUID UDC PO SCH ×5 (08:51→21:00)
[2021-10-31] MEDS: REMEDY ESSENTIAL ZINC PASTE 113 GM TOP SCH ×2 (08:52→21:33)
[2021-10-31] MEDS: CLOTRIMAZOLE 1% CREAM 30 GM TUBE TOP SCH ×2 (08:52→17:59)
[2021-10-31] MEDS: FUROSEMIDE 40 MG TABLET PO SCH (08:52)
[2021-10-31] MEDS: PROPRANOLOL HCL 10 MG TABLET PO SCH ×2 (08:52→19:00)
[2021-10-31] MEDS: RIFAXIMIN 550 MG TABLET PO SCH ×2 (08:52→21:00)
[2021-10-31 08:53] LABS: BILIRUBIN,DIRECT 1.3 mg/dL (0.0-0.2)
--- NOTE | 2021-10-31 10:30 | NUR ---
Patient was brought from ER. Got report from ER nurse Mitra. Had wrist restraints on, I took them off since the patient was calm and didn't have a reason to have them here. Patient is on room air, saturating 96. Patient is sleeping.
[2021-10-31 10:38] LABS: LYMPHOCYTES % (MANUAL) 15 % (20-40); MONOCYTES % (MANUAL) 16 % (2-10); NEUTROPHILS % (MANUAL) 69 % (42-75)
--- NOTE | 2021-10-31 11:28 | NUR ---
Telephone report given to Oanh Harding. pending interventions endorsed. Patient taken up to room 325 by nursing group art supervisor. PT. AAOX2. vitals stable 118/79, hr of 97. saturation of 97%. on RA.
[2021-10-31] MEDS: INSULIN REGULAR, HUMAN 300 UNIT/3 ML VIAL SQ PRN ×2 (12:27→21:29)
--- NOTE | 2021-10-31 15:08 | NUR ---
Received pt from ER. Pt was seen by speech therapist. Patient wasn't administered PO meds due to his NPO status. Patient is currently sleeping. No pain, no distress noticed. Will continue to monitor.
[2021-10-31] MEDS ORDERED: NEUTRA PHOS PACKET PO ONE (16:00)
[2021-10-31] MEDS: MEMANTINE HCL 10 MG TABLET PO SCH (21:00)
[2021-10-31] MEDS: OXYBUTYNIN XL 5 MG TABSR PO SCH (21:00)
[2021-10-31] MEDS: TAMSULOSIN HCL 0.4 MG CAP.SR.24H PO SCH (21:00)
[2021-10-31] MEDS: ATORVASTATIN 20 MG TABLET PO SCH (21:00)
[2021-11-01 01:10] VITALS: BP 135/65
[2021-11-01] MEDS: MEROPENEM 1 G in IV NORMAL SALINE 100 ML IV SCH ×3 (02:00→21:13)
[2021-11-01 04:00] VITALS: BP 125/57
[2021-11-01 06:30] LABS: HEMATOCRIT 33.4 % (36.7-47.1); MEAN CORPUSCULAR HEMOGLOBIN 34.8 uug (23.8-33.4); MEAN CORPUSCULAR VOLUME 102.5 fL (73.0-96.2); PLATELET COUNT (AUTO) 75 K/uL (152-348)
[2021-11-01] MEDS: BLOOD SUGAR DIAGNOSTIC 1 EACH STRIP VI SCH ×4 (06:33→21:18)
[2021-11-01] MEDS: PANTOPRAZOLE ORAL SUSPENSION 40 MG SUSPDR.PKT PO SCH (06:35)
[2021-11-01 06:53] LABS: BILIRUBIN,DIRECT 1.1 mg/dL (0.0-0.2); BILIRUBIN,TOTAL 3.4 mg/dL (0.2-1.0); CREATININE 0.8 mg/dL (0.6-1.3); MAGNESIUM 1.8 mg/dL (1.8-2.4); PHOSPHOROUS 1.8 mg/dL (2.5-4.9); POTASSIUM 3.7 mmol/L (3.5-5.1); TOTAL PROTEIN, SERUM 6.8 g/dL (6.4-8.2)
--- NOTE | 2021-11-01 06:57 | NUR ---
Patient is on NPO, for repeat swallow eval this morning. Oral meds not given. Alert to self, farsi speaking. No acute distress noted, no facial grimacing. Right IJ with triple lumen intact. Needs assessed and attended to. Call light within easy reach.
[2021-11-01] MEDS: PROPRANOLOL HCL 10 MG TABLET PO SCH ×2 (09:00→16:43)
[2021-11-01] MEDS: SPIRONOLACTONE 50 MG TABLET PO SCH (09:00)
[2021-11-01] MEDS: LACTULOSE 20 G/30 ML LIQUID UDC PO SCH ×4 (09:00→21:00)
[2021-11-01] MEDS: FUROSEMIDE 40 MG TABLET PO SCH (09:00)
[2021-11-01] MEDS: RIFAXIMIN 550 MG TABLET PO SCH ×2 (09:00→21:00)
[2021-11-01] MEDS: FLUTICASONE/VILANTEROL 1 EACH BLST.W.DEV INH SCH (09:00)
--- NOTE | 2021-11-01 09:30 | NUR ---
Dtr at bedside and is updated
[2021-11-01] MEDS: REMEDY ESSENTIAL ZINC PASTE 113 GM TOP SCH ×2 (10:36→21:20)
[2021-11-01] MEDS: CLOTRIMAZOLE 1% CREAM 30 GM TUBE TOP SCH ×2 (10:37→16:43)
[2021-11-01] MEDS: PETROLATUM,WHITE JELLY 28.35 GM TUBE TP PRN (10:37)
[2021-11-01 11:36] VITALS: BP 135/67
[2021-11-01 12:08] LABS: BAND % (MANUAL) 4 % (0-10); EOSINOPHILS % (MANUAL) 6 % (0-8); LYMPHOCYTES % (MANUAL) 16 % (20-40); MONOCYTES % (MANUAL) 8 % (2-10); NEUTROPHILS % (MANUAL) 66 % (42-75)
[2021-11-01] MEDS ORDERED: SODIUM PHOSPHATE MM 15 MMOL in IV NORMAL SALINE 250 ML IV ONE ×2 (16:00→23:30)
[2021-11-01 16:45] VITALS: BP 144/65
--- NOTE | 2021-11-01 17:55 | NUR ---
Remains npo due to failed swallow eval yesterday. ST is not here today for repeat swallow eval and LEADLIGHTER Angela is aware. Patient sleeps on/off, speaks farsi. No ss of pain or resp distress. Fc intact draining óscar-colored urine. No hematuria. Remains on restraints for pulling lines/tubes, reoriented prn. Kept comfortable. Safety ensured. Needs attended.
[2021-11-01 20:50] VITALS: BP 117/68
[2021-11-01] MEDS: TAMSULOSIN HCL 0.4 MG CAP.SR.24H PO SCH (21:00)
[2021-11-01] MEDS: ATORVASTATIN 20 MG TABLET PO SCH (21:00)
[2021-11-01] MEDS: OXYBUTYNIN XL 5 MG TABSR PO SCH (21:00)
[2021-11-01] MEDS: MEMANTINE HCL 10 MG TABLET PO SCH (21:00)
[2021-11-02] MEDS: MEROPENEM 1 G in IV NORMAL SALINE 100 ML IV SCH ×3 (04:10→17:04)
[2021-11-02 04:21] VITALS: BP 141/62
[2021-11-02 06:47] LABS: HEMATOCRIT 33.5 % (36.7-47.1); MEAN CORPUSCULAR HEMOGLOBIN 35.4 uug (23.8-33.4); MEAN CORPUSCULAR VOLUME 102.7 fL (73.0-96.2); PLATELET COUNT (AUTO) 82 K/uL (152-348)
[2021-11-02 06:54] LABS: CREATININE 0.8 mg/dL (0.6-1.3); MAGNESIUM 1.9 mg/dL (1.8-2.4); PHOSPHOROUS 3.1 mg/dL (2.5-4.9); POTASSIUM 3.7 mmol/L (3.5-5.1)
--- NOTE | 2021-11-02 06:55 | NUR ---
Slept well, easy to arouse alert to self and verbally responsive. Still NPO, for swallow eval today. No noted acute distress. No noted facial grimace, no signs of pain/discomfort. Needs assessed and attended to. Call light within reach.
[2021-11-02] MEDS: BLOOD SUGAR DIAGNOSTIC 1 EACH STRIP VI SCH ×5 (06:59→21:37)
--- NOTE | 2021-11-02 07:44 | NUR ---
Awake and verbally responsive. No ss of pain or respiratory distress. On room air. Loya cath intact and patent óscar colored urine. Iv access intact and patent. Safety measures in place. Cont to monitor.
--- NOTE | 2021-11-02 07:50 | NUR ---
Call received from lab lactic acid 2.0 relayed to SHAWN Miller no new order received at this time.
[2021-11-02] MEDS: FUROSEMIDE 40 MG TABLET PO SCH (09:00)
[2021-11-02] MEDS: LACTULOSE 20 G/30 ML LIQUID UDC PO SCH ×4 (09:00→21:18)
[2021-11-02] MEDS: FLUTICASONE/VILANTEROL 1 EACH BLST.W.DEV INH SCH (09:00)
[2021-11-02] MEDS: PROPRANOLOL HCL 10 MG TABLET PO SCH ×2 (09:00→17:05)
[2021-11-02] MEDS: SPIRONOLACTONE 50 MG TABLET PO SCH (09:00)
[2021-11-02] MEDS: RIFAXIMIN 550 MG TABLET PO SCH ×2 (09:00→21:18)
--- NOTE | 2021-11-02 09:52 | NUR ---
Patient removed Right IJ Iv dressing and attempted to pull out iv lines and tubings, redressed Right IJ IV, no bleeding noted, combative towards staff. TRUCKING SUPERVISOR Angela on the floor and ordered for soft wrist restraints and per TRUCKING SUPERVISOR if patient fails swallow eval again today to insert ngt. Will cont to monitor.
[2021-11-02] MEDS: PANTOPRAZOLE SODIUM 40 MG VIAL IV SCH (09:55)
[2021-11-02] MEDS: REMEDY ESSENTIAL ZINC PASTE 113 GM TOP SCH ×2 (09:56→21:24)
[2021-11-02] MEDS: CLOTRIMAZOLE 1% CREAM 30 GM TUBE TOP SCH ×2 (09:56→17:04)
[2021-11-02 10:02] LABS: BAND % (MANUAL) 2 % (0-10); EOSINOPHILS % (MANUAL) 15 % (0-8); LYMPHOCYTES % (MANUAL) 17 % (20-40); MONOCYTES % (MANUAL) 8 % (2-10); NEUTROPHILS % (MANUAL) 58 % (42-75)
--- NOTE | 2021-11-02 11:00 | NUR ---
Seen by Hanna BAH with recommendation for pureed, thin liquids no straw . HORSE GROOMER Angela aware. Order noted. Watch Inspector Final Movement made aware.
[2021-11-02 11:32] VITALS: BP 119/57
--- NOTE | 2021-11-02 11:45 | NUR ---
Received call from lab at 1140 for lactic acid 2.3, SHAWN Miller made aware no new order received at this time
--- NOTE | 2021-11-02 11:57 | NUR ---
Patient's bs at 1120am was 86 mg/dl, was given oj, at this time rechecked bs noted 102 mg/dl. will cont to monitor.
[2021-11-02 16:00] VITALS: BP 121/55
[2021-11-02] MEDS: INSULIN REGULAR, HUMAN 300 UNIT/3 ML VIAL SQ PRN ×2 (16:53→22:44)
--- NOTE | 2021-11-02 18:45 | NUR ---
pt started to eat today, no coughing/nausea/vomiting. strict aspiration precautions observed at all times. safety precautions in place. cont to monitor
[2021-11-02 20:00] VITALS: BP 135/72
[2021-11-02] MEDS: TAMSULOSIN HCL 0.4 MG CAP.SR.24H PO SCH (21:18)
[2021-11-02] MEDS: ATORVASTATIN 20 MG TABLET PO SCH (21:18)
[2021-11-02] MEDS: OXYBUTYNIN XL 5 MG TABSR PO SCH (21:18)
[2021-11-02] MEDS: MEMANTINE HCL 10 MG TABLET PO SCH (21:24)
--- NOTE | 2021-11-03 00:11 | NUR ---
RECEIVED REPORT FROM JENNYFER PT IS ALERT AND ORIENTEDX2-3 PT WAS GIVEN MEDICATIONS AND FED PATIENT APPLE JUICE FLUID HAS BE TAKEN WITH A THICKENED LIQUIDS LPT TOLERATED. WELL NO SIGNS OF DISTRESS NOTED. BLOOD SUGAR IS 185 GAVE 3 UNITS OF OLIVER INSULIN NO SIGNS OF DIAETIC REACTION NOTED WILL CONTINUE TO MONITOR,for falls and safety.
[2021-11-03] MEDS: MEROPENEM 1 G in IV NORMAL SALINE 100 ML IV SCH ×3 (02:10→20:37)
[2021-11-03 04:00] VITALS: BP 123/67
[2021-11-03 07:19] LABS: HEMATOCRIT 33.1 % (36.7-47.1); MEAN CORPUSCULAR HEMOGLOBIN 34.7 uug (23.8-33.4); MEAN CORPUSCULAR VOLUME 102.4 fL (73.0-96.2); PLATELET COUNT (AUTO) 83 K/uL (152-348)
[2021-11-03 08:14] LABS: CREATININE 0.8 mg/dL (0.6-1.3); PHOSPHOROUS 2.2 mg/dL (2.5-4.9); POTASSIUM 3.4 mmol/L (3.5-5.1)
[2021-11-03] MEDS: FUROSEMIDE 40 MG TABLET PO SCH (09:18)
[2021-11-03] MEDS: LACTULOSE 20 G/30 ML LIQUID UDC PO SCH ×4 (09:18→20:37)
[2021-11-03] MEDS: RIFAXIMIN 550 MG TABLET PO SCH ×2 (09:18→20:37)
[2021-11-03] MEDS: PANTOPRAZOLE SODIUM 40 MG VIAL IV SCH (09:19)
[2021-11-03] MEDS: SPIRONOLACTONE 50 MG TABLET PO SCH (09:19)
[2021-11-03] MEDS: REMEDY ESSENTIAL ZINC PASTE 113 GM TOP SCH ×2 (09:37→20:40)
[2021-11-03] MEDS: CLOTRIMAZOLE 1% CREAM 30 GM TUBE TOP SCH ×2 (09:37→17:28)
[2021-11-03] MEDS: PROPRANOLOL HCL 10 MG TABLET PO SCH ×2 (09:37→17:27)
[2021-11-03] MEDS: POTASSIUM CHLORIDE 50 ML IV SCH ×2 (10:00→11:25)
[2021-11-03 10:44] LABS: LYMPHOCYTES % (MANUAL) 16 % (20-40); MONOCYTES % (MANUAL) 8 % (2-10); NEUTROPHILS % (MANUAL) 76 % (42-75)
[2021-11-03] MEDS: BLOOD SUGAR DIAGNOSTIC 1 EACH STRIP VI SCH ×3 (11:26→21:02)
[2021-11-03] MEDS: INSULIN REGULAR, HUMAN 300 UNIT/3 ML VIAL SQ PRN ×3 (11:27→21:04)
[2021-11-03 12:00] VITALS: BP 118/58
--- NOTE | 2021-11-03 12:44 | NUR ---
I spoke with the pharmacist regarding Sodium phosphate that wasn't administered on 11/01 and he said to make it as "non-admin"
--- NOTE | 2021-11-03 12:49 | NUR ---
2nd bag of potassium (10 MeQ) was switched to PO form
[2021-11-03] MEDS ORDERED: POTASSIUM CHLORIDE 10 MEQ TAB.PRT.SR PO ONE (13:00)
[2021-11-03] MEDS: FLUTICASONE/VILANTEROL 1 EACH BLST.W.DEV INH SCH (13:01)
[2021-11-03] MEDS: PROTEIN SUPPLEMENT (PROSTAT) 30 ML LIQUID PO SCH (13:22)
[2021-11-03 15:36] VITALS: BP 109/59
[2021-11-03] MEDS ORDERED: NEUTRA PHOS PACKET PO ONE (16:30)
[2021-11-03 20:00] VITALS: BP 143/60
[2021-11-03] MEDS: OXYBUTYNIN XL 5 MG TABSR PO SCH (20:37)
[2021-11-03] MEDS: TAMSULOSIN HCL 0.4 MG CAP.SR.24H PO SCH (20:37)
[2021-11-03] MEDS: MEMANTINE HCL 10 MG TABLET PO SCH (20:37)
[2021-11-03] MEDS: ATORVASTATIN 20 MG TABLET PO SCH (20:40)
[2021-11-04] MEDS: MEROPENEM 1 G in IV NORMAL SALINE 100 ML IV SCH ×2 (02:12→10:05)
[2021-11-04 04:00] VITALS: BP 133/62
--- NOTE | 2021-11-04 05:44 | NUR ---
Slept intermittently. No distress noted. IV site intact, tolerated all medications given. Loya intact draining to gravity. Safety maintained throughout the shift. Will endorse to day shift.
[2021-11-04 06:46] LABS: HEMATOCRIT 33.4 % (36.7-47.1); MEAN CORPUSCULAR HEMOGLOBIN 35.3 uug (23.8-33.4); MEAN CORPUSCULAR VOLUME 102.5 fL (73.0-96.2); PLATELET COUNT (AUTO) 81 K/uL (152-348)
[2021-11-04] MEDS: BLOOD SUGAR DIAGNOSTIC 1 EACH STRIP VI SCH ×2 (06:54→12:20)
[2021-11-04] MEDS ORDERED: PANTOPRAZOLE ORAL SUSPENSION 40 MG SUSPDR.PKT PO SCH (07:00)
[2021-11-04 07:07] LABS: THYROID STIMULATING HORMONE 0.863 mIU/mL (0.358-3.740)
[2021-11-04 07:36] LABS: BILIRUBIN,TOTAL 2.9 mg/dL (0.2-1.0); CREATININE 0.8 mg/dL (0.6-1.3); MAGNESIUM 1.8 mg/dL (1.8-2.4); PHOSPHOROUS 2.6 mg/dL (2.5-4.9); POTASSIUM 3.7 mmol/L (3.5-5.1); TOTAL PROTEIN, SERUM 6.9 g/dL (6.4-8.2)
[2021-11-04 08:20] LABS: EOSINOPHILS % (MANUAL) 9 % (0-8); LYMPHOCYTES % (MANUAL) 14 % (20-40); MONOCYTES % (MANUAL) 5 % (2-10); NEUTROPHILS % (MANUAL) 72 % (42-75)
[2021-11-04] MEDS: LACTULOSE 20 G/30 ML LIQUID UDC PO SCH ×2 (08:39→12:14)
[2021-11-04] MEDS: FUROSEMIDE 40 MG TABLET PO SCH (08:39)
[2021-11-04] MEDS: SPIRONOLACTONE 50 MG TABLET PO SCH (08:39)
[2021-11-04] MEDS: FLUTICASONE/VILANTEROL 1 EACH BLST.W.DEV INH SCH (08:40)
[2021-11-04] MEDS: RIFAXIMIN 550 MG TABLET PO SCH (08:40)
[2021-11-04] MEDS: PROPRANOLOL HCL 10 MG TABLET PO SCH (08:41)
[2021-11-04] MEDS: PETROLATUM,WHITE JELLY 28.35 GM TUBE TP PRN (08:43)
[2021-11-04] MEDS: CLOTRIMAZOLE 1% CREAM 30 GM TUBE TOP SCH (08:44)
[2021-11-04] MEDS: REMEDY ESSENTIAL ZINC PASTE 113 GM TOP SCH (08:45)
[2021-11-04] MEDS: PROTEIN SUPPLEMENT (PROSTAT) 30 ML LIQUID PO SCH (08:45)
[2021-11-04] MEDS ORDERED: CYANOCOBALAMIN 1000 MCG/ML VIAL IM ONE (10:00)
[2021-11-04 12:00] VITALS: BP 124/59
[2021-11-04] MEDS ORDERED: DEXT50DI8 IV (12:20)
[2021-11-04] MEDS ORDERED: CYAN-10 IM (12:20)
[2021-11-04] MEDS ORDERED: ERTA1VIA4 IJ (12:20)
[2021-11-04] MEDS ORDERED: FLUT1BLS INH (12:20)
[2021-11-04] MEDS ORDERED: Blood Sugar Diagnostic VI (12:20)
[2021-11-04] MEDS ORDERED: INSU100V28 SQ (12:20)
[2021-11-04] MEDS ORDERED: ALBU2.5V7 NEB (12:20)
[2021-11-04] MEDS: INSULIN REGULAR, HUMAN 300 UNIT/3 ML VIAL SQ PRN (12:23)
--- NOTE | 2021-11-04 15:18 | NUR ---
Pt is discharged to [facility] and rehab bed 6a. Report called and given to Miguel WOOTEN. Pt is a/o x 1, confused and farsi speaking. All discharged information and reports included with patient to transfer to facility. Family aware and agreeable for SNF, CM spoke and discussed with family. IV and ID bands removed. No signs of acute distress noted. Pt SpO2 94% on room air.
== END 2021-11-04 14:45 | DRG 871 ==
LOC: ER 19:36 → TRANSITION 21:27 → TELE3 10-31 11:35 → MEDSURG3 11-01 12:41
PROVIDERS: ADMIT Internal Medicine; ATTEND Nurse Practitioner Family
PROC: 5A1945Z Respiratory Ventilation, 24-96 Consecutive Hours (ICD-10-PCS; principal; 2021-10-26)
PROC: 0BH17EZ Insertion of Endotracheal Airway into Trachea, Via Natural or Artificial Opening (ICD-10-PCS; 2021-10-26)
PROC: 02HV33Z Insertion of Infusion Device into Superior Vena Cava, Percutaneous Approach (ICD-10-PCS; 2021-10-26)
PROC: B548ZZA Ultrasonography of Superior Vena Cava, Guidance (ICD-10-PCS; 2021-10-26)
PROC: 0W993ZZ Drainage of Right Pleural Cavity, Percutaneous Approach (ICD-10-PCS; 2021-10-28)
PROC: 05H633Z Insertion of Infusion Device into Left Subclavian Vein, Percutaneous Approach (ICD-10-PCS; 2021-11-03)
PROC: B547ZZA Ultrasonography of Left Subclavian Vein, Guidance (ICD-10-PCS; 2021-11-03)
PROC: 05PYX3Z Removal of Infusion Device from Upper Vein, External Approach (ICD-10-PCS; 2021-11-03)
DX: A41.9 Sepsis, unspecified organism (principal); E43 Unspecified severe protein-calorie malnutrition; J96.01 Acute respiratory failure with hypoxia; R65.21 Severe sepsis with septic shock; I62.00 Nontraumatic subdural hemorrhage, unspecified; K76.7 Hepatorenal syndrome; J69.0 Pneumonitis due to inhalation of food and vomit; D68.9 Coagulation defect, unspecified; N39.0 Urinary tract infection, site not specified; N17.9 Acute kidney failure, unspecified; E87.2 Acidosis; J90 Pleural effusion, not elsewhere classified; Z68.1 Body mass index [BMI] 19.9 or less, adult; J98.11 Atelectasis; Z16.12 Extended spectrum beta lactamase (ESBL) resistance; I13.0 Hypertensive heart and chronic kidney disease with heart failure and stage 1 through stage 4 chronic kidney disease, or unspecified chronic kidney disease; J94.8 Other specified pleural conditions; K72.90 Hepatic failure, unspecified without coma; B96.20 Unspecified Escherichia coli [E. coli] as the cause of diseases classified elsewhere; D64.9 Anemia, unspecified; D69.59 Other secondary thrombocytopenia; E88.09 Other disorders of plasma-protein metabolism, not elsewhere classified; E87.6 Hypokalemia; F03.90 Unspecified dementia, unspecified severity, without behavioral disturbance, psychotic disturbance, mood disturbance, and anxiety; K21.9 Gastro-esophageal reflux disease without esophagitis; N18.30 Chronic kidney disease, stage 3 unspecified; Z66 Do not resuscitate; E83.42 Hypomagnesemia; Z20.822 Contact with and (suspected) exposure to COVID-19; D75.89 Other specified diseases of blood and blood-forming organs; N40.0 Benign prostatic hyperplasia without lower urinary tract symptoms; E11.22 Type 2 diabetes mellitus with diabetic chronic kidney disease; K70.31 Alcoholic cirrhosis of liver with ascites; Z79.84 Long term (current) use of oral hypoglycemic drugs; E83.39 Other disorders of phosphorus metabolism; Z87.440 Personal history of urinary (tract) infections; I50.9 Heart failure, unspecified
CPT/HCPCS: 32555; 36415; 36556; 36600; 51702; 70030-TC; 70450; 71045; 71250; 82747; 83550; 83605; 83615; 83735; 83986; 84100; 84155; 84443; 84484; 85014; 85025; 85610; 85730; 86803; 87040; 87070; 87077; 87086; 87205; 87806; 93005; 93307; 94002; 94003; 94640; A6209; A6213; C9113; G0378; J0330; J1644; J1815; J1940; J2185; J2543; J3370; J3420; J3475; J3480; J3490; J7040; P9047